=== PATIENT | male | born 1950 | race Caucasian/White ===

== ENCOUNTER → 2018-02-09 | Outpatient (CLI) | payer OTHER, BC | LOC: RAD 12:48 | DX: J45.909 Unspecified asthma, uncomplicated (principal) ==

== ENCOUNTER → 2021-04-28 | Outpatient (CLI) | payer OTHER, BC | LOC: RAD 09:15 | PROVIDERS: ATTEND Internal Medicine | DX: R06.02 Shortness of breath (principal); J45.40 Moderate persistent asthma, uncomplicated; R91.8 Other nonspecific abnormal finding of lung field ==